=== PATIENT | female | born 1950 | race Asian ===

== ENCOUNTER → 2019-02-02 | Outpatient (CLI) | payer MEDICARE ==
[~2019-02-02] MED LIST: ALBU90AE INH; ALEN70TA6 PO; FEXO1TAB25 PO
[2019-02-02 15:54] LABS: BASOPHILS # (AUTO) 0.04 x10^3/uL (0-0.1); BASOPHILS % (AUTO) 0 % (0-1); EOSINOPHILS # (AUTO) 0.29 x10^3/uL (0-0.4); EOSINOPHILS % (AUTO) 3 % (1-7); LYMPHOCYTES # (AUTO) 3.58 x10^3/uL (1-3.4); LYMPHOCYTES % (AUTO) 33 % (22-44); MD NO; MEAN CORPUSCULAR HEMOGLOBIN 30.6 pg (27.0-34.8); MEAN CORPUSCULAR HGB CONC 32.5 g/dL (32.4-35.8); MEAN CORPUSCULAR VOLUME 94.1 fL (80-100); MEAN PLATELET VOLUME 8.1 fL (7.4-10.4); MONOCYTES # (AUTO) 0.75 x10^3/uL (0.2-0.8); MONOCYTES % (AUTO) 7 % (2-9); NEUTROPHILS # (AUTO) 6.07 x10^3/uL (1.8-6.8); NEUTROPHILS % (AUTO) 57 % (42-75); PLATELET COUNT 247 x10^3/uL (130-400); RED BLOOD COUNT 4.53 x10^6/uL (3.82-5.3)
[2019-02-02 15:57] LABS: ANION GAP 4 mmol/L (5-15); CALCIUM 9.2 mg/dL (8.5-10.1); CHLORIDE 107 mmol/L (98-107)
[2019-02-02 15:58] LABS: CREATININE 0.79 mg/dL (0.55-1.02)
== END | disposition home or self-care (01) ==
LOC: CFH 12:31
PROVIDERS: ATTEND Internal Medicine Cardiovascular Disease
DX: R06.02 Shortness of breath (principal); R06.00 Dyspnea, unspecified
CPT/HCPCS: 36415; 71046; 80048; 85025

== ENCOUNTER 2019-02-04 10:56 | Observation (INO) | payer MEDICARE ==
[~2019-02-04] VITALS: Ht 160 cm; Wt 76.5 kg
[2019-02-04] MEDS ORDERED: SODIUM CHLORIDE 0.9% 1,000 ML IV SCH (14:00)
[2019-02-04] MEDS ORDERED: CEFAZOLIN PMX 1GM/50ML 50 ML IVPB ONE (14:00)
[2019-02-04] MEDS ORDERED: ALBU90AE INH (14:19)
[2019-02-04] MEDS ORDERED: FEXO1TAB25 PO (14:19)
[2019-02-04] MEDS ORDERED: ALEN70TA6 PO (14:19)
[2019-02-04 14:25] VITALS: BP 141/78
[2019-02-04] MEDS ORDERED: PLEASE ENTER HEIGHT AND WEIGHT MC SCH (14:30)
[2019-02-04] MEDS ORDERED: PLEASE ENTER ALLERGIES MC SCH (14:30)
[2019-02-04] MEDS ORDERED: CEFAZOLIN PMX 1GM/50ML 50 ML ONE (14:36)
[2019-02-04] MEDS ORDERED: FENTANYL PF 100 MCG/2ML ONE (14:36)
[2019-02-04] MEDS ORDERED: CEFAZOLIN 1,000 MG ONE (14:36)
[2019-02-04] MEDS ORDERED: MIDAZOLAM 1 MG/ML, 5ML ONE (14:36)
[2019-02-04] MEDS ORDERED: LIDOCAINE 1%, 20ML ONE (14:36)
[2019-02-04] MEDS ORDERED: ACETAMINOPHEN 325 MG TABLET PO PRN (16:00)
[2019-02-04] MEDS ORDERED: HOLD MEDICATION MC PRN (16:00)
[2019-02-04] MEDS ORDERED: ALBUTEROL SULFATE 2.5 MG/3 ML NPPB PRN (17:00)
[2019-02-04] MEDS ORDERED: HYDROcodone/APAP 5/325 TABLET ONE ×2 (17:20→17:23)
[2019-02-04] MEDS: HYDROcodone/APAP 5/325 TABLET PO PRN (17:24)
[2019-02-04 19:39] VITALS: BP 99/62
[2019-02-05 00:53] VITALS: BP 118/69
[2019-02-05] MEDS: CEFAZOLIN PMX 1GM/50ML 50 ML IVPB SCH ×2 (03:01→15:54)
[2019-02-05] MEDS: SODIUM CHLORIDE FLUSH 10ML SYR IVF SCH ×2 (03:01→10:19)
[2019-02-05] MEDS ORDERED: ALENDRONATE 70 MG TABLET PO SCH ×2 (06:30)
[2019-02-05 06:59] VITALS: BP 122/73
[2019-02-05] MEDS: HYDROcodone/APAP 5/325 TABLET PO PRN ×2 (08:09→16:14)
[2019-02-05 13:26] VITALS: BP 135/81
== END 2019-02-05 17:17 | disposition home or self-care (01) ==
LOC: CACL 10:56 → ORIP 15:35 → 5SO 17:39 → DCLOUNGE 02-05 16:57
PROVIDERS: ADMIT Internal Medicine Cardiovascular Disease; ATTEND Internal Medicine Cardiovascular Disease
DX: I44.1 Atrioventricular block, second degree (principal); R06.02 Shortness of breath; R42 Dizziness and giddiness
CPT/HCPCS: 33208; 71045; 96365; 96366; 99156; 99157; C1779; C1785; C1892; G0378; J0690; J2250; J3010; J3490

== ENCOUNTER 2019-05-02 12:17 | Outpatient (CLI) | payer MEDICARE | END 2019-05-02 23:59 | disposition home or self-care (01) | LOC: CFH 12:17 | PROVIDERS: ATTEND Physician Assistant | DX: N64.4 Mastodynia (principal) | CPT/HCPCS: 76642; 77066; G0279 ==

== ENCOUNTER 2019-05-27 08:24 | Outpatient (CLI) | payer MEDICARE | END 2019-05-27 23:59 | disposition home or self-care (01) | LOC: CFH 08:24 | PROVIDERS: ATTEND Internal Medicine Cardiovascular Disease | DX: I08.2 Rheumatic disorders of both aortic and tricuspid valves (principal) | CPT/HCPCS: 93306 ==

== ENCOUNTER 2021-02-05 16:35 | Emergency (ER) | payer MEDICARE ==
[~2021-02-05] VITALS: Ht 162.6 cm; Wt 75.0 kg
[~2021-02-05 16:35] MED LIST changes: -ALEN70TA6 PO; +ALEN70TA77 PO
--- NOTE | 2021-02-05 16:59 | NUR ---
TRIAGE: PATIENT WAS SENT BY DR BAHENA ON BEHALF OF DR LORENZ BECAUSE PATIENT SHE'S BEEN SOB, FATIGUE, WEAK, SLEEPINESS THAT BEGAN TODAY.
[2021-02-05 18:03] LABS: BASOPHILS % (AUTO) 1 % (0-1); EOSINOPHILS % (AUTO) 4 % (1-7); LYMPHOCYTES % (AUTO) 46 % (22-44); MEAN CORPUSCULAR HEMOGLOBIN 31.3 pg (27.0-34.8); MEAN PLATELET VOLUME 7.8 fL (7.4-10.4); MONOCYTES % (AUTO) 9 % (2-9); NEUTROPHILS % (AUTO) 40 % (42-75); PLATELET COUNT 172 x10^3/uL (130-400); RED BLOOD COUNT 4.36 x10^6/uL (3.82-5.3); RED CELL DISTRIBUTION WIDTH 14.4 % (9.6-15.2)
[2021-02-05 18:09] LABS: ALBUMIN 3.1 g/dL (3.4-5.0); CALCIUM 9.4 mg/dL (8.5-10.1); CREATININE 0.92 mg/dL (0.55-1.02)
--- NOTE | 2021-02-05 18:12 | NUR ---
PT STATES FELT LIKE SHE COULD NOT TAKE A DEEP BREATH IN AND FATIGUE SINCE THIS MORNING. UOB TO BATHROOM ACROSS THE HUGGINS WITHOUT ASSISTANCE.
[2021-02-05 18:16] LABS: ANION GAP 4 mmol/L (5-15); CHLORIDE 107 mmol/L (98-107); TROPONIN I < 0.015 ng/mL (0.000-0.045)
[2021-02-05 18:31] LABS: MD SCAN
--- NOTE | 2021-02-05 18:47 | NUR ---
REPORT RECIEVED FROM ANNIE STOUT
[2021-02-05 18:48] LABS: MICROSCOPIC AUTO
[2021-02-05] MEDS ORDERED: CEFDINIR 300 MG CAPSULE ONE (19:17)
[2021-02-05] MEDS ORDERED: ASPIRIN 81 MG TABLET CHEW ONE (19:25)
[2021-02-05 19:30] VITALS: BP 119/64
[2021-02-05] MEDS ORDERED: ASPIRIN 81 MG TABLET CHEW PO ONE (19:30)
[2021-02-05] MEDS ORDERED: CEFDINIR 300 MG CAPSULE PO ONE (19:30)
== END 2021-02-05 20:13 | disposition home or self-care (01) ==
LOC: ED 19:20
DX: N30.00 Acute cystitis without hematuria (principal); R07.9 Chest pain, unspecified; J45.909 Unspecified asthma, uncomplicated; E78.5 Hyperlipidemia, unspecified; Z87.891 Personal history of nicotine dependence; Z95.0 Presence of cardiac pacemaker
CPT/HCPCS: 36415; 71045; 80048; 81001; 82040; 84484; 85025; 87077; 87086; 87186; 93005; 99285